=== PATIENT | female | born 1985 | race Caucasian/White ===

== ENCOUNTER 2017-05-26 00:23 | Emergency (ER) | payer MEDICAID ==
[2017-05-26 00:30] VITALS: BMI 28.2
--- NOTE | 2017-05-26 02:01 | OBHP ---
Datetime: 05/26/2017 01:10 IP Adm Impression: Term, intrauterine ; No Active Labor IP Admit Plan: Discharge home Admit Comment, IP Provider: 31 y.o. , LMP 08/18/16, SYLVIA 05/25/17, per patient revised to 06/04/17 by priv OB; EGA 38w 5d c/o contractions onset 0600 hours 05/25/17, now every 30 minutes, pain scale 7/1 0. (+) AFM; denies LOF, VB. Passed mucous plug approx 2300 hours. care: Ob affiliated with [facility]. issues: A1 GDM - average F.S.: fasting 80-100; 2 hours post prandial 12 0-130. P Ob: 11/2012, , male, 6lb 2oz, CH; no complications P [employer]: 16 x monthly x 5-6 PMH: denies PSH: denies NKDA Meds: PNV Soc Hx: denies tobacco, illicit drug or EtOH use. x 7 years. Fam Hx. Father 09/2016, 60 y.o. - S/P [place], h/o HTN and DM. Mother 12/2016, 60 y.o. - Breast cancer. P.E.: as above. WD in NAD. Awake, alert, oriented to time, person and place. present Assessment: 31 y.o. P1, 38w 5d, A1GDM, not in active labor. Category 1 tracing. Release of Medica l Records authorization faxed to L_D at [facility]. records received and reviewed: GBS (-); all screening negative/wnl except GCT 153; 3 hr GTT 86/ 187/173/156; and varicella non immune. O(+). Clinically stable Plan: 1) Discharge home 2) Reviewed S/S labor Pelvic Type - PN: Adequate Extremities - PN: Normal Abdomen - PN: Normal Back - PN: Normal Breast - PN: Not Done Lungs - PN: Normal Heart - PN: Normal Thyroid - PN: Not Done Neurologic - PN: Normal HEENT - PN: Normal General - PN: Normal Presentation-Admit: Vertex FHR - Baseline A Provider: 150 Membranes, Provider: Intact Contraction Comments Provider: 5-10 Comments, ACOG Physical Exam: Abdomen: gravid. Soft. non tender. Fundal height 39 cm All other systems reviewed and are negsative Gestation - Est Wks by US: 38w 5d EGA AdmitDate IP: 38.5 Vital Signs Provider: Reviewed IP Chief Complaint: Uterine contractions NICHD Variability Prov Fetus A: Moderate 6-25bpm NICHD Accel Fetus A IP Provider: 15X15 FHR Category Provider Fetus A: Category I NICHD Decel Fetus A IP Provider: None Dilatation, Provider: 2-3 Effacement, Provider: 30 Station, Provider: -3 Genitourinary Exam: Normal DTRs - PN: Not Done
== END 2017-05-26 01:40 | disposition home or self-care (01) ==
LOC: C.EROB 00:23
DX: O47.1 False labor at or after 37 completed weeks of gestation (principal); Z3A.38 38 weeks gestation of pregnancy

== ENCOUNTER 2017-05-27 22:05 | Emergency (ER) | payer MEDICAID ==
[2017-05-26 00:30] VITALS: BMI 28.2
--- NOTE | 2017-05-27 23:45 | OBHP ---
Datetime: 05/27/2017 23:34 IP Adm Impression: Term, intrauterine ; No Active Labor IP Admit Plan: Observation/Evaluation Admit Comment, IP Provider: IUP at 38wks returns her c/o pelvic pressure and contractions. Was seen about a day ago with similar complaints. Denies VB or LOF. [place]- Q3-6 FHR: Category 1, Cx-1-2/30/-3, Same when repeated after 1 hour. Accucheck- 84 Assessment: IUP at 38wks False labor Plan: D/c Home. Labor instructions given F/U with Regular OB clinic. Pelvic Type - PN: Adequate Extremities - PN: Normal Abdomen - PN: Normal Back - PN: Normal Breast - PN: Normal Lungs - PN: Normal Heart - PN: Normal Thyroid - PN: Normal Neurologic - PN: Normal HEENT - PN: Normal General - PN: Normal Presentation-Admit: Vertex FHR - Baseline A Provider: 140s Membranes, Provider: Intact Contraction Comments Provider: Q3-6 Gestation - Est Wks by US: 38.0 EGA AdmitDate IP: 38.5 Vital Signs Provider: Reviewed IP Chief Complaint: Uterine contractions; Maternal discomfort NICHD Variability Prov Fetus A: Moderate 6-25bpm NICHD Accel Fetus A IP Provider: 15X15 FHR Category Provider Fetus A: Category I NICHD Decel Fetus A IP Provider: None Dilatation, Provider: 1-2 Effacement, Provider: 30 Station, Provider: -3 Genitourinary Exam: Normal DTRs - PN: Normal
[2017-05-28 03:50] VITALS: BP 126/75; PULSE 124; RESP 20; TEMP 98.2
== END 2017-05-27 23:40 | disposition home or self-care (01) ==
LOC: C.EROB 22:05
DX: O47.1 False labor at or after 37 completed weeks of gestation (principal); Z3A.38 38 weeks gestation of pregnancy

== ENCOUNTER 2017-05-31 16:05 | Inpatient (IN) | payer MEDICAID ==
--- NOTE | 2017-05-31 16:49 | OBADHP ---
Datetime: 05/31/2017 16:39 Admit Comment, IP Provider: at 39.2weeks came from her pmd c/o oligohyraminos on sonogram, occ ctxs, vb, lof,+fm. pt is gdma1. obhx 1 x pmh gdma1 med pnv all nkda psh den soch den ve /-3 sono cep/post/12/28.4 a/p at 39+weeks with oligohyraminos/gdma1 admit to l_d npo/ivf labs cont lexi and efm cervidil no care anticipate Pelvic Type - PN: Adequate Extremities - PN: Normal Abdomen - PN: Normal Back - PN: Normal Breast - PN: Normal Lungs - PN: Normal Heart - PN: Normal Thyroid - PN: Normal Neurologic - PN: Normal HEENT - PN: Normal General - PN: Normal FHR - Baseline A Provider: 130 Contraction Comments Provider: irrg Comments, ACOG Physical Exam: gravid,no tender ext no edema,no calf ten IP Hx Assessment: The History has been Reviewed and is Current Vital Signs Provider: Reviewed; Within Normal Limits IP Chief Complaint: Uterine contractions NICHD Variability Prov Fetus A: Moderate 6-25bpm NICHD Accel Fetus A IP Provider: 15X15 FHR Category Provider Fetus A: Category I Genitourinary Exam: Normal DTRs - PN: Normal EGA AdmitDate IP: 39.2 IP Adm Impression: Term, intrauterine ; No Active Labor; Intact Membranes IP Admit Plan: Admit to unit; Initiate labor induction protocol Datetime: 05/27/2017 23:34 Presentation-Admit: Vertex Membranes, Provider: Intact Gestation - Est Wks by US: 38.0 NICHD Decel Fetus A IP Provider: None Dilatation, Provider: 1-2 Effacement, Provider: 30 Station, Provider: -3
[2017-05-31] MEDS ORDERED: Lactated Ringer's 1,000 ML IV SCH (17:00)
[2017-05-31] MEDS ORDERED: Nalbuphine 20 mg/ml Inj (1 ml) IVP PRN (17:00)
[2017-05-31 17:28] LABS: ALBUMIN 3.4 g/dL (3.5-5.0)
[2017-05-31 17:31] LABS: AST/SGOT 18 U/L (14-36); GFR AFRICAN-AMERICAN > 60; GFR NON-AFRICAN AMERICAN > 60
[2017-05-31 17:32] LABS: ALT/SGPT 24 U/L (9-52); BLOOD UREA NITROGEN 4 mg/dL (7-17); CALCIUM 9.1 mg/dl (8.6-10.4)
[2017-05-31 17:33] LABS: SQUAMOUS EPITHIAL 10 /hpf (0-5); URINE BACTERIA FEW (<OCC); URINE BILIRUBIN NEGATIVE (NEGATIVE); URINE BLOOD 1+ (NEGATIVE); URINE CLARITY Hazy (Clear); URINE COLOR Yellow (YELLOW); URINE GLUCOSE (UA) NORMAL (Normal); URINE LEUKOCYTE ESTERASE 3+ Leu/uL (Negative); URINE NITRATE NEGATIVE (NEGATIVE); URINE PROTEIN NEGATIVE (NEGATIVE); URINE UROBILINOGEN NORMAL mg/dL (0.2-1.0)
[2017-05-31 18:03] LABS: HEPATITIS B SURFACE AG NEGATIVE (NEGATIVE)
[2017-05-31 18:20] LABS: BASO % 0.2 % (0.0-2.0); EOS # 0.1 K/uL (0.0-0.7); EOS % 0.5 % (0.0-4.0); MEAN CELL VOLUME 89.1 fL (81.0-99.0); MEAN CORPUSCULAR HEMOGLOBIN 30.1 pg (27.0-31.0); MEAN CORPUSCULAR HGB CONC 33.7 g/dL (33.0-37.0); MEAN PLATELET VOLUME 10.7 fL (7.2-11.7); MONO # 0.7 K/uL (0.0-0.8); MONO % 6.1 % (0.0-10.0); NEUT # 9.1 K/uL (1.8-7.0); NEUT % 76.2 % (50.0-75.0); RBC 3.98 Mil/uL (3.80-5.20); RED CELL DISTRIBUTION WIDTH 13.5 % (11.5-14.5); WHITE BLOOD COUNT 11.9 K/uL (4.8-10.8)
[2017-05-31] MEDS: Potassium Chloride 20 mEq ER Tab PO SCH (19:00)
[2017-05-31] MEDS ORDERED: Dextrose 5%/Lactated Ringer's 1,000 ML IV SCH (19:15)
[2017-06-01] MEDS ORDERED: Oxycodone/Acetaminophen 5/325 mg Tab PO PRN (04:16)
[2017-06-01] MEDS ORDERED: Lidocaine 2% Inj (20ml) ONE (04:28)
[2017-06-01] MEDS ORDERED: Oxytocin 30 UNIT 30 UNITS/500 ML BAG IV SCH (04:30)
[2017-06-01] MEDS: Potassium Chloride 20 mEq ER Tab PO SCH (10:22)
[2017-06-02 07:31] LABS: HEMOGLOBIN 13.4 g/dL (11.0-16.0); MEAN CELL VOLUME 89.6 fL (81.0-99.0); MEAN CORPUSCULAR HEMOGLOBIN 30.2 pg (27.0-31.0); MEAN CORPUSCULAR HGB CONC 33.8 g/dL (33.0-37.0); MEAN PLATELET VOLUME 10.7 fL (7.2-11.7); RBC 4.44 Mil/uL (3.80-5.20); RED CELL DISTRIBUTION WIDTH 13.9 % (11.5-14.5)
[2017-06-02 07:51] LABS: ALBUMIN 3.4 g/dL (3.5-5.0); ALT/SGPT 24 U/L (9-52); AST/SGOT 27 U/L (14-36); BLOOD UREA NITROGEN 5 mg/dL (7-17); CALCIUM 9.4 mg/dl (8.6-10.4); GFR AFRICAN-AMERICAN > 60; GFR NON-AFRICAN AMERICAN > 60
--- NOTE | 2017-06-02 09:11 | OBPPN ---
Datetime: 06/02/2017 09:09 PP Pain Prov: Within normal limits PP Nausea Prov: Denies PP Flatus Prov: Yes PP Abdomen/Uterus Prov: Normal PP Lochia Prov: Normal PP Extremities Prov: Normal PP Comments Phys Exam Prov: fudus below umblicus ext no edema,no calf ten PP Impression Prov: Normal progression PP Plan Prov: Continue present management PP Progress Note Prov: pt was seen at bed side, pain under control,mno n/v, tolerating deit, voiding ,min lochia, flatus+ ppd#1 s/p cbc rg deit pain management cont pp care Vital Signs Provider PP: Reviewed; Within Normal Limits
[2017-06-02] MEDS: Potassium Chloride 20 mEq ER Tab PO SCH (10:08)
[2017-06-02 16:10] VITALS: RESP 20
--- NOTE | 2017-06-03 13:44 | OBPPN ---
Datetime: 06/03/2017 13:42 PP Pain Prov: Within normal limits PP Nausea Prov: Denies PP Flatus Prov: Yes PP Heart Prov: Normal PP Lungs Prov: Normal PP Abdomen/Uterus Prov: Normal PP CVA Tenderness Prov: Normal PP Extremities Prov: Normal PP C/S Incision Prov: Not Applicable PP Progress Prov: Normal PP Impression Prov: Normal progression PP Plan Prov: Discharge PP Progress Note Prov: S-patient denies any compalints.reports that pain siw ell controlled.tolerati ng diet.ambulating and voiding without difficulty.Passing flatus O-VSS Afebrile Fundus firm and below umbilicus extremities no calf tenderness A/P Patient s/p vaginal delivery ppd 2 doing well -dischareg today -follow up in clinic in 6 weeks Vital Signs Provider PP: Reviewed; Within Normal Limits
--- NOTE | 2017-06-03 13:46 | OBDCSUM ---
Datetime: 06/03/2017 08:56 Discharged to, Provider: Home Follow up at, Provider: DR Traore Disch Instr Activity: Normal activity Disch Instr Diet: Regular Discharge Diet restrict Prov: no pork Discharge Diagnosis, Provider: Term Delivered Discharge Time: 06/03/2017 10:43 Follow up in weeks, Provider: 6 wks Disch Referrals: None Disch Activity Restrictions: No lifting; No sexual activity; Nothing in vagina - [place], tampon s, douche Discharge Comment, Provider: go to er if you have fever, severe pain, heavy bleeding or any other pr oblems Discharge Diagnosis Prov Other: s/p vaginal delivery
[2017-06-03 23:01] VITALS: BP 121/74; PULSE 98; TEMP 97.6; O2SAT 98
== END 2017-06-03 12:00 | disposition home or self-care (01) | DRG 372 ==
LOC: C.EROB 16:05 → C.4D 16:49 → C.4M 06-01 06:00
PROVIDERS: ADMIT Obstetrics & Gynecology; ATTEND Obstetrics & Gynecology
PROC: 10E0XZZ Delivery of Products of Conception, External Approach (ICD-10-PCS; principal; 2017-06-01)
DX: O41.03X0 Oligohydramnios, third trimester, not applicable or unspecified (principal); O24.429 Gestational diabetes mellitus in childbirth, unspecified control; Z37.0 Single live birth; Z3A.39 39 weeks gestation of pregnancy